=== PATIENT | female | born 1940 | race Caucasian/White ===

== ENCOUNTER → 2016-09-25 | Outpatient (CLI) | payer MEDICARE, BC ==
--- NOTE | 2016-09-25 12:34 | REPMRS ---
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 Malignant mastectomy of the left breast, 1985. Digital Woman Screen Mammo: September 25, 2016 - Exam #: [id number] Bilateral CC and MLO view(s) were taken. Technologist: Rebekah Burr, Technologist Prior study comparison: September 23, 2015, digital woman screen mammo performed at [facility] [place] [facility]. August 23, 2014, digital woman screen mammo performed at [facility] [place] [facility]. FINDINGS: There are scattered fibroglandular densities. There has been no change in the appearance of the right breast parenchyma in the interval since the prior examination. No mass, architectural distortion, or microcalcific cluster has developed. No suspicious finding. ASSESSMENT: BI-RADS/ACR category 2 mammogram. Benign finding(s). Recommendation Routine screening mammogram in 1 year. This mammogram was interpreted with the aid of an FDA-approved computer-aided dectection system. Electronically Signed By: Jesus Lake MD 09/25/16 [id number]
== END ==
LOC: M WHC 09:46
PROVIDERS: ATTEND Nurse Practitioner Family
DX: Z01.419 Encounter for gynecological examination (general) (routine) without abnormal findings (principal); Z12.31 Encounter for screening mammogram for malignant neoplasm of breast; Z78.0 Asymptomatic menopausal state; Z85.3 Personal history of malignant neoplasm of breast; Z12.12 Encounter for screening for malignant neoplasm of rectum
CPT/HCPCS: 82270; G0101; G0202

== ENCOUNTER → 2018-01-06 | Outpatient (CLI) | payer MEDICARE, BC | LOC: M WHC 08:56 | DX: Z12.31 Encounter for screening mammogram for malignant neoplasm of breast (principal); Z90.12 Acquired absence of left breast and nipple; Z85.3 Personal history of malignant neoplasm of breast | CPT/HCPCS: 77067 ==

== ENCOUNTER → 2019-01-05 | Outpatient (CLI) | payer MEDICARE, BC ==
--- NOTE | 2019-01-05 12:42 | REPMRS ---
Patient History The patient states she had a clinical breast exam in 12/2018. Patient is postmenopausal, has history of other cancer at age 68, has history of cancer in the left breast at age 45, had previous chest radiation therapy at age 45, and had previous chemotherapy at age 45. No known family history of cancer. Malignant mastectomy of the left breast, 1985. No Hormone Replacement Therapy Digital Woman Screen Mammo: January 05, 2019 - Exam #: [id number] Bilateral CC and MLO view(s) were taken. Technologist: Adriane Duñeas, Technologist Prior study comparison: January 06, 2018, bilateral digital woman screen mammo performed at [facility] [place]. September 25, 2016, digital woman screen mammo performed at [facility]. September 23, 2015, digital woman screen mammo performed at [facility] [place]. FINDINGS: There are scattered fibroglandular densities. There has been no change in the appearance of the left breast parenchyma in the interval since the prior examination. No mass, architectural distortion, or microcalcific cluster has developed. No suspicious finding. 3-D tomosynthesis shows no additional findings. Assessment: BI-RADS/ACR category 2 mammogram. Benign Findings. Recommendation Routine screening mammogram of the left breast in 1 year. This mammogram was interpreted with the aid of an FDA-approved computer-aided dectection system. Electronically Signed By: Jesus Lake MD 01/05/19 1419
== END ==
LOC: M WHC 09:56
PROVIDERS: ATTEND Nurse Practitioner Family
DX: Z12.31 Encounter for screening mammogram for malignant neoplasm of breast (principal); Z78.0 Asymptomatic menopausal state; Z85.3 Personal history of malignant neoplasm of breast; Z92.3 Personal history of irradiation; Z92.21 Personal history of antineoplastic chemotherapy; Z90.12 Acquired absence of left breast and nipple
CPT/HCPCS: 77063; 77067; G0463

== ENCOUNTER → 2021-02-22 | Outpatient (CLI) | payer MEDICARE, OTHER ==
--- NOTE | 2021-02-22 11:10 | REP ---
INDICATION: LAMONT SCR MAMMO. COMPARISON: Multiple TECHNIQUE: Digital screening mammography of the right breast was carried out in the CC and MLO projections using both 2D and 3D modalities and compared to the prior exams. The patient is status post left mastectomy due to breast carcinoma. By history, the patient has no complaints of a palpable abnormality or other significant breast complaints.. FINDINGS: The right breast is unchanged in size and shape. Once again, scattered dense heterogenous fibroglandular elements are present in a stable appearing pattern. There are no leandro soft tissue densities or spiculated masses. There is no internal architectural distortion. There are no suspicious micro calcific clusters. There is no skin thickening or nipple retraction. The Volpara volumetric breast density pattern is b. IMPRESSION: BIRADS/ACR category 1 negative mammogram. This mammogram was interpreted with the aid of an FDA-approved computer-aided detection system. Patient's last CBE and known The patient letter being requested is M1. RECOMMENDATION: Repeat screening mammography recommended 1 year (for women over 40). <Electronically signed by Graham Cottrell > 02/22/21 1103
== END ==
LOC: M WHC 10:00
PROVIDERS: ATTEND Nurse Practitioner Women's Health
DX: Z12.31 Encounter for screening mammogram for malignant neoplasm of breast (principal); Z85.3 Personal history of malignant neoplasm of breast; Z90.12 Acquired absence of left breast and nipple
CPT/HCPCS: 77063; 77067; G0463

== ENCOUNTER → 2022-12-07 | Outpatient (CLI) | payer MEDICARE, BC, OTHER | LOC: M WHC 10:48 | PROVIDERS: ATTEND Nurse Practitioner Family | DX: Z12.31 Encounter for screening mammogram for malignant neoplasm of breast (principal); Z85.3 Personal history of malignant neoplasm of breast; Z90.12 Acquired absence of left breast and nipple ==

== ENCOUNTER → 2024-02-18 | Outpatient (CLI) | payer MEDICARE, BC | LOC: M WHC 09:50 | PROVIDERS: ATTEND Nurse Practitioner Family | DX: Z12.31 Encounter for screening mammogram for malignant neoplasm of breast (principal); Z85.3 Personal history of malignant neoplasm of breast ==